=== PATIENT | male | born 1980 | race African-American/Black ===

== ENCOUNTER 2023-11-16 13:04 | Inpatient (IN) | payer OTHER ==
[2023-11-16 14:19] VITALS: BMI 30.4
[2023-11-16] MEDS ORDERED: NALOXONE HCL 0.4 MG/ML VIAL IM PRN (15:23)
[2023-11-16] MEDS ORDERED: NALOXONE (NARCAN) HCL 4 MG/0.1 ML SPRAY NS PRN (15:23)
[2023-11-16] MEDS ORDERED: ACETAMINOPHEN 325 MG TABLET (FP) PO PRN (15:23)
[2023-11-16] MEDS ORDERED: BENZONATATE 200 MG CAPSULE PO PRN (15:23)
[2023-11-16] MEDS ORDERED: POLYETHYLENE GLYCOL (HEALTHYLAX) 3350 17 GM PACKET PO PRN (15:23)
[2023-11-16] MEDS ORDERED: BISMUTH SUBSALICYLATE 262 MG/15 ML BTL PO PRN (15:23)
[2023-11-16] MEDS ORDERED: IBUPROFEN 400 MG TABLET (FP) PO PRN (15:23)
[2023-11-16] MEDS ORDERED: LOPERAMIDE HCL 2 MG CAPSULE PO PRN (15:23)
[2023-11-16] MEDS ORDERED: DICYCLOMINE HCL 10 MG CAPSULE PO PRN (15:23)
[2023-11-16] MEDS ORDERED: MAGNESIUM HYDROX 2400MG/30ML ORAL SUSPENSION 30 ML CUP PO PRN (15:23)
[2023-11-16] MEDS ORDERED: BENZOCAINE/MENTHOL (CHLORASEPTIC ) LOZENGE MM PRN (15:23)
[2023-11-16] MEDS ORDERED: guaiFENesin 600 MG TABLET.ER (FP) PO PRN (15:23)
[2023-11-16] MEDS ORDERED: diazePAM 5 MG TABLET PO PRN ×2 (15:26→15:27)
[2023-11-16] MEDS ORDERED: BUPRENORPHINE HCL 150 MCG, BUPRENORPHINE HCL 75 MCG BC PRN (15:26)
[2023-11-16] MEDS ORDERED: BUPRENORPHINE HCL 150 MCG FILM BC ONE (16:30)
[2023-11-16] MEDS ORDERED: NICOTINE 21 MG/24 HOURS TOPICAL PATCH ONE (16:30)
[2023-11-16] MEDS ORDERED: PRENATAL VITAMINS W/ FOLIC ACID TABLET (FP) PO ONE (16:31)
[2023-11-16] MEDS ORDERED: LISINOPRIL 10 MG TABLET ONE (16:31)
[2023-11-16] MEDS ORDERED: BUPRENORPHINE HCL 75 MCG FILM BC ONE (16:31)
[2023-11-16] MEDS ORDERED: cloNIDine HCL 0.1 MG TABLET ONE (16:31)
[2023-11-16] MEDS: BUPRENORPHINE HCL 150 MCG, BUPRENORPHINE HCL 75 MCG BC ONE (16:41)
[2023-11-16] MEDS: cloNIDine HCL 0.1 MG TABLET PO ONE (16:41)
[2023-11-16] MEDS: DARUNAVIR/COB/EMTRI/TENOF ALAF 1 EACH TABLET PO SCH (16:41)
[2023-11-16] MEDS: NICOTINE 21 MG/24 HOURS TOPICAL PATCH TD SCH (16:41)
[2023-11-16] MEDS: LISINOPRIL 20 MG TABLET PO ONE (16:42)
[2023-11-16] MEDS: INSULIN ASPART SLIDING SCALE (NOVOLOG) 1 VIAL SQ SCH (16:42)
[2023-11-16] MEDS: PRENATAL VITAMINS W/ FOLIC ACID TABLET (FP) PO SCH (16:42)
[2023-11-16] MEDS: metFORMIN HCL 500 MG TABLET (FP) PO SCH (17:42)
[2023-11-16] MEDS: INSULIN (LEVEMIR) 100 UNITS/ML UNITS SQ SCH (21:02)
[2023-11-16] MEDS: THIAMINE 100 MG TABLET PO SCH (21:03)
[2023-11-16] MEDS: cloNIDine HCL 0.1 MG TABLET PO PRN (21:03)
[2023-11-16] MEDS: GABAPENTIN 100 MG CAPSULE PO SCH (21:03)
[2023-11-16] MEDS: diazePAM 5 MG TABLET PO PRN (21:03)
[2023-11-17] MEDS ORDERED: BUPRENORPHINE HCL 150 MCG, BUPRENORPHINE HCL 75 MCG BC PRN
[2023-11-17] MEDS: MELATONIN 5 MG TABLETS PO SCH (00:06)
[2023-11-17] MEDS: BUPRENORPHINE HCL 150 MCG, BUPRENORPHINE HCL 75 MCG BC SCH (05:38)
[2023-11-17] MEDS ORDERED: MIRTAZAPINE 30 MG TABLET PO SCH (10:00)
[2023-11-17] MEDS ORDERED: TRIMETHOBENZAMIDE HCL 200MG/2ML INJ IM ONE (15:29)
[2023-11-17] MEDS: TRIMETHOBENZAMIDE HCL 200MG/2ML INJ IM ONE (17:32)
[2023-11-17] MEDS: MIRTAZAPINE 30 MG TABLET PO SCH (22:11)
[2023-11-18] MEDS ORDERED: INSULIN (NOVOLOG) ASPART 100 UNITS/ML 10ML VIAL ONE ×2 (04:46→11:46)
[2023-11-18] MEDS: BUPRENORPHINE HCL 450 MCG FILM BC SCH (06:59)
[2023-11-18 14:35] LABS: CHLORIDE 106 mmol/L (98-107); POTASSIUM 4.1 mmol/L (3.5-5.1); SODIUM 139 mmol/L (136-145)
[2023-11-18 14:46] LABS: CALCIUM 8.7 mg/dL (8.5-10.1)
[2023-11-18 14:47] LABS: ANION GAP 8 mmol/L (4-13); BLOOD UREA NITROGEN 14.4 mg/dL (7-18); CO2 25 mmol/L (21-32); GLUCOSE,RANDOM 156 mg/dL (74-106)
[2023-11-18 14:50] LABS: SGOT/AST 17 U/L (15-37); SGPT/ALT 18 U/L (13-61)
[2023-11-18 14:51] LABS: BILIRUBIN,TOTAL 0.3 mg/dL (0.2-1)
[2023-11-18 14:52] LABS: ALK PHOS 107 U/L (45-117); TOT PROT 6.4 g/dl (6.4-8.2)
[2023-11-18] MEDS: METHOCARBAMOL 500 MG TABLET PO PRN (17:50)
[2023-11-19] MEDS: BUPRENORPHINE/NALOXONE 4 MG/1 MG FILM PACKET SL SCH (07:01)
[2023-11-19] MEDS: PNEUMOC 20-VAL CONJ-DIP CRM/PF 0.5 ML SYRINGE IM ONE (11:50)
[2023-11-19] MEDS: ONDANSETRON *ODT* 4 MG TABLET SL PRN (13:16)
[2023-11-19] MEDS: TRIMETHOBENZAMIDE HCL 200MG/2ML INJ IM ONE (14:20)
[2023-11-19] MEDS: hydrOXYzine PAMOATE 25 MG CAPSULE (FP) PO PRN (16:11)
[2023-11-19] MEDS: IBUPROFEN 600 MG TABLET (FP) PO PRN (17:35)
[2023-11-20] MEDS: BUPRENORPHINE/NALOXONE 8 MG/2 MG FILM PACKET SL ONE (05:59)
[2023-11-20] MEDS: MAG HYDROX/AL HYDROX/SIMETH 30 ML UNIT-DOSE CUP PO PRN (10:20)
[2023-11-20] MEDS ORDERED: INSULIN (NOVOLOG) ASPART 100 UNITS/ML 10ML VIAL ONE (11:11)
[2023-11-20] MEDS: TRIMETHOBENZAMIDE HCL 200MG/2ML INJ IM PRN (11:18)
[2023-11-20] MEDS: PENICILLIN G BENZATHINE 2,400,000 UNIT/4 ML PFS IM ONE ×2 (11:30→14:09)
[2023-11-20] MEDS: LISINOPRIL 20 MG TABLET PO SCH (12:45)
[2023-11-21] MEDS: BUPRENORPHINE/NALOXONE 8 MG/2 MG FILM PACKET SL SCH (09:26)
[2023-11-21] MEDS ORDERED: INSULIN (NOVOLOG) ASPART 100 UNITS/ML 10ML VIAL ONE (17:02)
[2023-11-21 17:21] VITALS: BP 126/72; PULSE 83; RESP 16; TEMP 98.4
[2023-11-27] MEDS ORDERED: PENICILLIN G BENZATHINE 2,400,000 UNIT/4 ML PFS IM ONE (11:01)
[2023-12-04] MEDS ORDERED: PENICILLIN G BENZATHINE 2,400,000 UNIT/4 ML PFS IM ONE (11:02)
== END 2023-11-21 17:54 | disposition other institution (70) | DRG 773 ==
LOC: YASAS 13:04 → Y6N 16:29
PROVIDERS: ADMIT Allergy & Immunology; ATTEND Family Medicine Addiction Medicine
PROC: HZ2ZZZZ Detoxification Services for Substance Abuse Treatment (ICD-10-PCS; principal; 2023-11-16)
DX: F11.23 Opioid dependence with withdrawal (principal); F13.20 Sedative, hypnotic or anxiolytic dependence, uncomplicated; F17.210 Nicotine dependence, cigarettes, uncomplicated; F19.282 Other psychoactive substance dependence with psychoactive substance-induced sleep disorder; F19.24 Other psychoactive substance dependence with psychoactive substance-induced mood disorder; F31.9 Bipolar disorder, unspecified; F43.10 Post-traumatic stress disorder, unspecified; Z21 Asymptomatic human immunodeficiency virus [HIV] infection status; I10 Essential (primary) hypertension; E11.9 Type 2 diabetes mellitus without complications; Z79.4 Long term (current) use of insulin; Z86.19 Personal history of other infectious and parasitic diseases; Z79.899 Other long term (current) drug therapy
CPT/HCPCS: 36415; 80053; 80305; 80307; 82962; 83036; 86593; 86780; 86803; 87811; 90677; 93005; 93010; G0009; Q0162

== ENCOUNTER 2023-11-21 18:00 | Inpatient (IN) | payer OTHER ==
[2023-11-21] MEDS ORDERED: ACETAMINOPHEN 325 MG TABLET (FP) PO PRN (18:07)
[2023-11-21] MEDS ORDERED: IBUPROFEN 400 MG TABLET (FP) PO PRN (18:07)
[2023-11-21] MEDS ORDERED: NALOXONE HCL 0.4 MG/ML VIAL IVPUSH PRN (18:07)
[2023-11-21] MEDS ORDERED: MAGNESIUM HYDROX 2400MG/30ML ORAL SUSPENSION 30 ML CUP PO PRN (18:07)
[2023-11-21] MEDS ORDERED: BENZOCAINE/MENTHOL (CHLORASEPTIC ) LOZENGE MM PRN (18:07)
[2023-11-21] MEDS ORDERED: NALOXONE (NARCAN) HCL 4 MG/0.1 ML SPRAY NS PRN (18:07)
[2023-11-21] MEDS ORDERED: POLYETHYLENE GLYCOL (HEALTHYLAX) 3350 17 GM PACKET PO PRN (18:07)
[2023-11-21] MEDS ORDERED: BENZONATATE 200 MG CAPSULE PO PRN (18:07)
[2023-11-21] MEDS ORDERED: guaiFENesin 600 MG TABLET.ER (FP) PO PRN (18:07)
[2023-11-21] MEDS ORDERED: LOPERAMIDE HCL 2 MG CAPSULE PO PRN (18:07)
[2023-11-21] MEDS: hydrOXYzine PAMOATE 25 MG CAPSULE (FP) PO PRN (19:54)
[2023-11-21] MEDS: METHOCARBAMOL 500 MG TABLET PO PRN (21:16)
[2023-11-21] MEDS: THIAMINE 100 MG TABLET PO SCH (21:16)
[2023-11-21] MEDS: MELATONIN 5 MG TABLETS PO SCH (21:16)
[2023-11-21] MEDS: MIRTAZAPINE 30 MG TABLET PO SCH (21:16)
[2023-11-21] MEDS: GABAPENTIN 100 MG CAPSULE PO SCH (21:16)
[2023-11-21] MEDS: INSULIN (LEVEMIR) 100 UNITS/ML UNITS SQ SCH (21:18)
[2023-11-22] MEDS: IBUPROFEN 600 MG TABLET (FP) PO PRN (03:24)
[2023-11-22] MEDS: metFORMIN HCL 500 MG TABLET (FP) PO SCH (06:19)
[2023-11-22] MEDS: DARUNAVIR/COB/EMTRI/TENOF ALAF 1 EACH TABLET PO SCH (07:10)
[2023-11-22] MEDS: PRENATAL VITAMINS W/ FOLIC ACID TABLET (FP) PO SCH (09:48)
[2023-11-22] MEDS: BUPRENORPHINE/NALOXONE 8 MG/2 MG FILM PACKET SL SCH (10:57)
[2023-11-22] MEDS: LISINOPRIL 20 MG TABLET PO SCH (10:57)
[2023-11-22] MEDS: INSULIN ASPART SLIDING SCALE (NOVOLOG) 1 VIAL SQ SCH (11:59)
[2023-11-22] MEDS ORDERED: INSULIN (NOVOLOG) ASPART 100 UNITS/ML 10ML VIAL ONE ×4 (12:00→21:53)
[2023-11-22] MEDS: MAG HYDROX/AL HYDROX/SIMETH 30 ML UNIT-DOSE CUP PO PRN (12:22)
[2023-11-22] MEDS: NICOTINE 14 MG/24 HOURS TOPICAL PATCH TD SCH (16:50)
[2023-11-22] MEDS ORDERED: INSULIN (LEVEMIR) 100 UNITS/ML UNITS SQ ONE (21:54)
[2023-11-23] MEDS ORDERED: INSULIN (NOVOLOG) ASPART 100 UNITS/ML 10ML VIAL ONE ×2 (06:47→16:33)
[2023-11-23] MEDS: ONDANSETRON *ODT* 4 MG TABLET SL PRN (10:21)
[2023-11-23] MEDS: PANTOPRAZOLE 20 MG TABLET PO SCH (12:41)
[2023-11-23] MEDS: ATORVASTATIN CA 10 MG TABLET (FP) PO SCH (21:09)
[2023-11-23] MEDS: TOLNAFTATE 1% CREAM 15 GM TUBE TP SCH (21:10)
[2023-11-23] MEDS: BUPRENORPHINE/NALOXONE 4 MG/1 MG FILM PACKET SL SCH (21:12)
[2023-11-24] MEDS ORDERED: SIMETHICONE 80 MG TAB.CHEW (FP) PO PRN (13:17)
[2023-11-24] MEDS: TRIMETHOBENZAMIDE HCL 200MG/2ML INJ IM ONE ×2 (17:38→20:32)
[2023-11-24] MEDS ORDERED: INSULIN (NOVOLOG) ASPART 100 UNITS/ML 10ML VIAL ONE (21:10)
[2023-11-25] MEDS ORDERED: INSULIN (NOVOLOG) ASPART 100 UNITS/ML 10ML VIAL ONE ×2 (11:30→16:56)
[2023-11-25] MEDS: TRIMETHOBENZAMIDE HCL 200MG/2ML INJ IM ONE (12:45)
[2023-11-26] MEDS ORDERED: INSULIN (NOVOLOG) ASPART 100 UNITS/ML 10ML VIAL ONE ×2 (16:21→21:51)
[2023-11-26] MEDS ORDERED: INSULIN (LEVEMIR) 100 UNITS/ML UNITS SQ ONE (21:51)
[2023-11-27] MEDS ORDERED: INSULIN (NOVOLOG) ASPART 100 UNITS/ML 10ML VIAL ONE ×2 (16:36→21:40)
[2023-11-27] MEDS: TRIMETHOBENZAMIDE HCL 200MG/2ML INJ IM ONE (17:54)
[2023-11-27] MEDS ORDERED: INSULIN (LEVEMIR) 100 UNITS/ML UNITS SQ ONE (21:40)
[2023-11-28] MEDS ORDERED: INSULIN (NOVOLOG) ASPART 100 UNITS/ML 10ML VIAL ONE ×3 (07:13→21:12)
[2023-11-29] MEDS ORDERED: INSULIN (NOVOLOG) ASPART 100 UNITS/ML 10ML VIAL ONE ×3 (11:56→21:55)
[2023-11-29] MEDS: PENICILLIN G BENZATHINE 2,400,000 UNIT/4 ML PFS IM ONE (12:02)
[2023-11-30] MEDS ORDERED: INSULIN ASPART SLIDING SCALE (NOVOLOG) 1 VIAL SQ ONE (11:55)
[2023-11-30] MEDS ORDERED: INSULIN (NOVOLOG) ASPART 100 UNITS/ML 10ML VIAL ONE ×2 (16:42→21:43)
[2023-11-30] MEDS ORDERED: INSULIN (LEVEMIR) 100 UNITS/ML UNITS SQ ONE (21:43)
[2023-12-01] MEDS ORDERED: INSULIN (NOVOLOG) ASPART 100 UNITS/ML 10ML VIAL ONE ×4 (11:52→21:33)
[2023-12-01] MEDS ORDERED: INSULIN (LEVEMIR) 100 UNITS/ML UNITS SQ ONE (21:33)
[2023-12-02] MEDS ORDERED: INSULIN (NOVOLOG) ASPART 100 UNITS/ML 10ML VIAL ONE ×3 (11:54→21:37)
[2023-12-02] MEDS ORDERED: INSULIN (LEVEMIR) 100 UNITS/ML UNITS SQ ONE (21:37)
[2023-12-03] MEDS ORDERED: INSULIN (NOVOLOG) ASPART 100 UNITS/ML 10ML VIAL ONE ×4 (06:40→21:39)
[2023-12-04] MEDS ORDERED: INSULIN (NOVOLOG) ASPART 100 UNITS/ML 10ML VIAL ONE ×3 (11:57→21:26)
[2023-12-05 09:13] VITALS: BP 144/94; PULSE 92; RESP 16; TEMP 98.2
[2023-12-06] MEDS ORDERED: PENICILLIN G BENZATHINE 2,400,000 UNIT/4 ML PFS IM ONE ×2 (06:00→10:00)
== END 2023-12-05 09:25 | disposition home or self-care (01) | DRG 772 ==
LOC: YASAS 18:00 → Y3E 18:03
PROVIDERS: ADMIT Allergy & Immunology; ATTEND Family Medicine Addiction Medicine
PROC: HZ42ZZZ Group Counseling for Substance Abuse Treatment, Cognitive-Behavioral (ICD-10-PCS; principal; 2023-11-21)
DX: F11.20 Opioid dependence, uncomplicated (principal); F13.20 Sedative, hypnotic or anxiolytic dependence, uncomplicated; F17.210 Nicotine dependence, cigarettes, uncomplicated; F31.9 Bipolar disorder, unspecified; F41.9 Anxiety disorder, unspecified; Z21 Asymptomatic human immunodeficiency virus [HIV] infection status; I10 Essential (primary) hypertension; E78.5 Hyperlipidemia, unspecified; E11.9 Type 2 diabetes mellitus without complications; Z79.4 Long term (current) use of insulin; Z79.84 Long term (current) use of oral hypoglycemic drugs; B35.3 Tinea pedis; R60.0 Localized edema; R11.2 Nausea with vomiting, unspecified; Z59.00 Homelessness unspecified
CPT/HCPCS: 36415; 82962; 86803; Q0162

== ENCOUNTER 2024-03-02 13:42 | Inpatient (IN) | payer OTHER ==
[2024-03-02 14:17] VITALS: BMI 29.0
[2024-03-02] MEDS ORDERED: BENZOCAINE/MENTHOL (CHLORASEPTIC ) LOZENGE MM PRN (16:44)
[2024-03-02] MEDS ORDERED: guaiFENesin 600 MG TABLET.ER (FP) PO PRN (16:44)
[2024-03-02] MEDS ORDERED: MAG HYDROX/AL HYDROX/SIMETH 30 ML UNIT-DOSE CUP PO PRN (16:44)
[2024-03-02] MEDS ORDERED: BISMUTH SUBSALICYLATE 524 MG/30 ML PO PRN (16:44)
[2024-03-02] MEDS ORDERED: NALOXONE (NARCAN) HCL 4 MG/0.1 ML SPRAY NS PRN (16:44)
[2024-03-02] MEDS ORDERED: ACETAMINOPHEN 325 MG TABLET (FP) PO PRN (16:44)
[2024-03-02] MEDS ORDERED: POLYETHYLENE GLYCOL (HEALTHYLAX) 3350 17 GM PACKET PO PRN (16:44)
[2024-03-02] MEDS ORDERED: DICYCLOMINE HCL 10 MG CAPSULE PO PRN (16:44)
[2024-03-02] MEDS ORDERED: MAGNESIUM HYDROX 2400MG/30ML ORAL SUSPENSION 30 ML CUP PO PRN (16:44)
[2024-03-02] MEDS ORDERED: METHOCARBAMOL 500 MG TABLET PO PRN (16:44)
[2024-03-02] MEDS ORDERED: ONDANSETRON *ODT* 4 MG TABLET SL PRN (16:44)
[2024-03-02] MEDS: PRENATAL VITAMINS W/ FOLIC ACID TABLET (FP) PO SCH (16:52)
[2024-03-02] MEDS: NICOTINE 14 MG/24 HOURS TOPICAL PATCH TD SCH (17:25)
[2024-03-02] MEDS: chlordiazePOXIDE HCL 25 MG CAPSULE PO PRN (19:29)
[2024-03-02] MEDS: THIAMINE 100 MG TABLET PO SCH (22:49)
[2024-03-02] MEDS: MELATONIN 5 MG TABLETS PO SCH (22:49)
[2024-03-02] MEDS: chlordiazePOXIDE HCL 25 MG CAPSULE PO SCH (23:05)
[2024-03-03 09:00] LABS: HEMATOCRIT 34.1 % (35.4-49); HEMOGLOBIN 11.7 GM/dL (11.7-16.9); MCH 29.7 pg (25.7-33.7); MCHC 34.3 g/dl (32.0-35.9); MEAN CELL VOLUME 86.7 fl (80-96); MEAN PLT VOLUME 8.7 fl (7.5-11.1); PLATELET COUNT 182 10^3/uL (134-434); RBC 3.93 M/mm3 (4.00-5.60); WHITE BLOOD COUNT 3.7 K/mm3 (4.0-10.0)
[2024-03-03 09:32] LABS: CHLORIDE 108 mmol/L (98-107); POTASSIUM 4.4 mmol/L (3.5-5.1); SODIUM 138 mmol/L (136-145)
[2024-03-03 09:34] LABS: ALBUMIN 3.1 g/dl (3.4-5.0); CALCIUM 8.2 mg/dL (8.5-10.1)
[2024-03-03 09:35] LABS: GLUCOSE,RANDOM 243 mg/dL (74-106)
[2024-03-03 09:37] LABS: ANION GAP 3 mmol/L (4-13); BLOOD UREA NITROGEN 15.5 mg/dL (7-18); CO2 27 mmol/L (21-32); SGPT/ALT 36 U/L (13-61)
[2024-03-03 09:39] LABS: BILIRUBIN,TOTAL 0.3 mg/dL (0.2-1); SGOT/AST 24 U/L (15-37); TOT PROT 6.4 g/dl (6.4-8.2)
[2024-03-03 09:43] LABS: ALK PHOS 132 U/L (45-117)
[2024-03-03] MEDS: BENZONATATE 200 MG CAPSULE PO PRN (09:57)
[2024-03-03] MEDS: PANTOPRAZOLE 20 MG TABLET PO SCH (11:00)
[2024-03-03] MEDS: metFORMIN HCL 500 MG TABLET (FP) PO ONE ×2 (11:00→12:04)
[2024-03-03] MEDS: LISINOPRIL 20 MG TABLET PO SCH (11:00)
[2024-03-03] MEDS: INSULIN ASPART SLIDING SCALE (NOVOLOG) 1 VIAL SQ SCH (11:56)
[2024-03-03] MEDS: PATIENT'S OWN MEDICATION (NON-FORMULARY) (Darunavir/Cob/Emtri/Tenof Alaf 1 EACH Tablet) PO SCH ×2 (13:00→13:01)
[2024-03-03] MEDS: IBUPROFEN 600 MG TABLET (FP) PO PRN (15:01)
[2024-03-03] MEDS: METHOCARBAMOL 500 MG TABLET PO PRN (15:02)
[2024-03-03] MEDS: metFORMIN HCL 500 MG TABLET (FP) PO SCH (17:00)
[2024-03-03] MEDS: ATORVASTATIN CA 10 MG TABLET (FP) PO SCH (22:30)
[2024-03-03] MEDS: MIRTAZAPINE 30 MG TABLET PO SCH (22:30)
[2024-03-03] MEDS: INSULIN (LEVEMIR) 100 UNITS/ML UNITS SQ SCH (22:31)
[2024-03-03] MEDS: MELATONIN 5 MG TABLETS PO SCH (22:31)
[2024-03-04] MEDS: IBUPROFEN 400 MG TABLET (FP) PO PRN (01:22)
[2024-03-04] MEDS: chlordiazePOXIDE HCL 25 MG CAPSULE PO SCH (06:00)
[2024-03-04] MEDS: hydrOXYzine PAMOATE 25 MG CAPSULE (FP) PO PRN (13:14)
[2024-03-05] MEDS ORDERED: chlordiazePOXIDE HCL 10 MG CAPSULE PO PRN
[2024-03-05] MEDS: chlordiazePOXIDE HCL 10 MG CAPSULE PO SCH (06:17)
[2024-03-05] MEDS: LOPERAMIDE HCL 2 MG CAPSULE PO PRN (13:10)
[2024-03-05] MEDS ORDERED: INSULIN (NOVOLOG) ASPART 100 UNITS/ML 10ML VIAL ONE (17:18)
[2024-03-06] MEDS: chlordiazePOXIDE HCL 10 MG CAPSULE PO SCH (06:00)
[2024-03-06] MEDS ORDERED: INSULIN (NOVOLOG) ASPART 100 UNITS/ML 10ML VIAL ONE ×2 (10:35→16:36)
[2024-03-06] MEDS: PENICILLIN G BENZATHINE 2,400,000 UNIT/4 ML PFS IM ONE (17:40)
[2024-03-07] MEDS: chlordiazePOXIDE HCL 10 MG CAPSULE PO ONE (05:54)
[2024-03-07] MEDS: sitaGLIPtin PHOSPHATE 50 MG TABLET PO SCH (06:01)
[2024-03-07] MEDS ORDERED: NALOXONE (NYS OPIOID OVERDOSE PROGRAM) 4 MG/0.1 ML SPRAY NS SCH (14:00)
[2024-03-07 16:53] VITALS: RESP 18
[2024-03-08 06:25] VITALS: BP 119/70; PULSE 89; TEMP 98.7
== END 2024-03-08 08:30 | disposition home or self-care (01) | DRG 775 ==
LOC: YASAS 13:42 → Y6N 18:26
PROVIDERS: ADMIT Allergy & Immunology; ATTEND Surgery
PROC: HZ2ZZZZ Detoxification Services for Substance Abuse Treatment (ICD-10-PCS; principal; 2024-03-02)
DX: F10.230 Alcohol dependence with withdrawal, uncomplicated (principal); F15.20 Other stimulant dependence, uncomplicated; F17.210 Nicotine dependence, cigarettes, uncomplicated; F19.282 Other psychoactive substance dependence with psychoactive substance-induced sleep disorder; F19.280 Other psychoactive substance dependence with psychoactive substance-induced anxiety disorder; F19.24 Other psychoactive substance dependence with psychoactive substance-induced mood disorder; F31.9 Bipolar disorder, unspecified; I10 Essential (primary) hypertension; E78.5 Hyperlipidemia, unspecified; E11.9 Type 2 diabetes mellitus without complications; R76.8 Other specified abnormal immunological findings in serum; Z79.4 Long term (current) use of insulin; Z79.84 Long term (current) use of oral hypoglycemic drugs; Z86.59 Personal history of other mental and behavioral disorders
CPT/HCPCS: 36415; 80053; 80307; 82962; 85027; 86593; 86780; 93005; 93010